=== PATIENT | female | born 1970 | race Caucasian/White ===

== ENCOUNTER 2023-04-21 06:20 | Day surgery (SDC) | payer BC ==
[~2023-04-21 06:20] MED LIST: Lactated Ringers 1,000 ML IV SCH; Sodium Chloride 0.9% 10 ML Syringe FLUSH PRN
[2023-04-21] MEDS ORDERED: Propofol 200 MG/20 ML SDV IV ONE (06:21)
[2023-04-21] MEDS ORDERED: Lidocaine 2% 5 ML SDV IV ONE (06:21)
[2023-04-21] MEDS ORDERED: Midazolam 1 MG/ML 2 ML SDV IV ONE (06:21)
[2023-04-21 07:12] VITALS: BP 152/93; PULSE 79
[2023-04-21] MEDS ORDERED: Simethicone Drops 40 MG/0.6 ML 30 ML Bottle ONE (07:14)
== END 2023-04-21 08:58 | disposition home or self-care (01) ==
LOC: FB.SDS 06:20
PROVIDERS: ATTEND Surgery
DX: Z12.11 Encounter for screening for malignant neoplasm of colon (principal); K63.5 Polyp of colon; Q43.8 Other specified congenital malformations of intestine; E78.5 Hyperlipidemia, unspecified; E03.9 Hypothyroidism, unspecified; F33.9 Major depressive disorder, recurrent, unspecified; E66.01 Morbid (severe) obesity due to excess calories; Z79.899 Other long term (current) drug therapy; Z88.0 Allergy status to penicillin; Z98.890 Other specified postprocedural states; Z90.49 Acquired absence of other specified parts of digestive tract; Z68.31 Body mass index [BMI] 31.0-31.9, adult
CPT/HCPCS: 00812; 45385; 88305; A9270; J2250; J2704; J7120